=== PATIENT | female | born 1965 | race Caucasian/White ===

== ENCOUNTER 2024-11-14 10:30 | Outpatient (CLI) | payer BC, SELFPAY ==
--- NOTE | 2024-11-14 09:00 | DI.RAD_ITS ---
Exam(s) XR STANDING ALIGNMENT EXAM: XR STANDING ALIGNMENT CLINICAL HISTORY: OA L KNEE. TECHNIQUE: 2D digital imaging was performed. Four images were obtained. COMPARISON: CR XR KNEE 3V LT from 03/24/2024 CR XR KNEE 3V RT from 07/02/2024 FINDINGS: BONES: There are mild degenerative changes seen in the hips bilaterally. There is mild narrowing of the left hip joint space. Osteophytes are seen on the right femoral head. In the right knee, there is mild narrowing of the medial joint space. Osteophytes are seen both medially and laterally. In t he left knee, there is mild joint space narrowing medial. There osteophytes seen at the lateral aspe ct of the proximal tibia. There is an intramedullary cluster of calcifications in the distal right f emur which appears stable. This likely reflects a benign lesion such as a bone infarct or enchondrom a. The ankles are well maintained.There is no significant leg length discrepancy. SOFT TISSUE: Normal. IMPRESSION: Mild degenerative changes of the knees bilaterally. DATA REPOSITORY: RADIATION DOSE DELIVERED:
== END 2024-11-14 10:31 | disposition home or self-care (01) ==
LOC: DIORS 10:31
PROVIDERS: PCP Nurse Practitioner Family; Visit Provider Physician Assistant
DX: M17.12 Unilateral primary osteoarthritis, left knee (principal); M17.11 Unilateral primary osteoarthritis, right knee
CPT/HCPCS: 77073

== ENCOUNTER 2024-11-14 16:50 | Outpatient (REF) | payer BC, SELFPAY ==
[2024-11-14 10:39] LABS: HCT 42.9 % (36.0-46.0); HGB 13.6 g/dL (11.2-15.7); MCH 29.1 pg (27.0-33.0); MCHC 31.7 % (32.0-36.0); MCV 92 fL (80-95); MPV 11.7 fL (8.0-11.0); Platelet Count 212 10^3/uL (130-400); RBC 4.67 10^6/uL (3.93-5.22); RDW 12.5 % (11.7-14.6); RDW-SD 42.3 fL; WBC 5.69 10^3/uL (4.4-10.8)
[2024-11-14 10:43] LABS: Anion Gap 4.8 mmol/L (3-11); BUN 16 mg/dL (7-18); CO2 32.2 mmol/L (21.0-32.0); CREATININE 0.7 mg/dL (0.55-1.02); Calcium 9.6 mg/dL (8.5-10.1); Chloride 108 mmol/L (98-107); Estimated GFR 98.95 (mL/min/1.73m2); Glucose 101 mg/dL (74-106); Potassium 4.5 mmol/L (3.5-5.1); Sodium 145 mmol/L (136-145)
== END 2024-11-14 16:51 | disposition home or self-care (01) ==
LOC: LBN 16:50
PROVIDERS: PCP Nurse Practitioner Family; Visit Provider Student in an Organized Health Care Education/Training Program
DX: M17.11 Unilateral primary osteoarthritis, right knee (principal); Z01.818 Encounter for other preprocedural examination
CPT/HCPCS: 80048; 85027

== ENCOUNTER 2024-11-30 06:58 | Day surgery (SDC) | payer BC, SELFPAY ==
[2024-11-30] VITALS (20 sets, daily range): BP systolic 95–153; BP diastolic 38–82; PULSE 47–67; RESP 10–24; TEMP 35.8–36.8; O2SAT 95–100; BMI 32.6
--- NOTE | 2024-11-30 07:22 | W.PM.DSUDISC ---
Date of service: 11/30/24 Discharge Plan Disposition Patient Disposition: Home Condition: Good Discharge Details Reason For Visit: L TKR Attending Provider: Vinicius Ortiz Primary Care Provider: Federico Tovar Home Meds and New Rx's Prescriptions: New acetaminophen 500 mg tablet 1,000 mg PO TID Qty: 90 3RF aspirin 81 mg tablet,delayed release (DR/EC) 81 mg PO BID Qty: 60 0RF celecoxib 200 mg capsule 200 mg PO BID Qty: 60 0RF dexamethasone 4 mg tablet 4 mg PO DAILY Qty: 2 0RF docusate sodium 100 mg capsule 100 mg PO BID PRNQty: 28 0RF pantoprazole 40 mg tablet,delayed release (DR/EC) 40 mg PO DAILY Qty: 14 0RF gabapentin 300 mg capsule 300 mg PO QHS Qty: 14 0RF oxycodone 5 mg tablet 5 mg PO Q4H PRNQty: 18 0RF Continued cholecalciferol (vitamin D3) 50 mcg (2,000 unit) capsule 50 mcg PO DAILY levothyroxine 100 mcg tablet 100 mcg PO DAILY multivitamin Tablet 1 tab PO DAILY omega 9-gxl-bdj-fish oil 360-1,200 mg capsule,delayed release(DR/EC) 1 cap PO DAILY Discharge Instructions Additional Instructions: Total Knee Discharge Instructions Activity: The most important activity is to walk and to work on gentle motion (both flexion and extension). You should try to take short walks a few times a day. It is important that when resting you work on keeping the knee straight. Avoid putting a pillow behind the knee as this will encourage flexion. Work on range of motion exercises as provided by Physical Therapy. - Start outpatient physical therapy within 2 weeks. - You should wear the MAICOL hose on both legs for 2 weeks. You may remove these at night. You may also use any compression sock in place of the MAICOL hose. - Utilize [employer] to review exercises, see videos on exercises and obtain basic information pertaining to your surgery and your recovery. Dressing: Remove the Neel wrap by 2 days after your surgery and put on the MAICOL stocking given to you from the hospital. Keep the surgical dressing (underneath the NEEL wrap) in place for at least one week. After the first week it may be removed and replaced with light gauze and tape or nothing. The wound and dressing may get wet after 3 days but avoid soaking the dressing or otherwise it will need to be changed. Many people prefer covering the dressing with cling wrap (saran wrap) to minimize it from getting soaked. If it gets wet, just pat dry. If it starts to peel off then it will need to be changed. Medications: - You should take Tylenol and anti-inflammatory Celebrex as your primary pain control medications. If the Celebrex is too expensive or not covered, please call the office for another alternative (Advil/Ibuprofen or Naproxen/Aleve) - You have been prescribed a stronger pain medication Oxycodone for breakthrough pain, take as needed as prescribed. - You have also been prescribed a stomach acid reduction agent Pantoprozole to help reduce stomach acid and reflux. - You have been prescribed Gabapentin to take at night for restlessness and nerve pain. - You will be taking Aspirin 81mg twice a day for DVT prevention unless instructed otherwise. - You have also been prescribed Decadron to take to control post-operative nausea and pain. You will start this tomorrow. - If you have constipation you should take Colace or Miralax (both [id number]). It takes most people 3-4 days to have a bowel movement. Follow-up: 2 weeks If you have any acute concerns or questions, please do not hesitate to contact the office at [phone]. You may contact Dr. Ortiz with any questions after hours through the hospital at [phone] or on his cell phone at [phone]. Referrals: Vinicius Ortiz MD [ [facility] STAFF PHYSICIAN] - Equipment/Supplies: Walker Activity:: Activity as Tolerated Shower/Bathe:: 72 hours Diet:: As Tolerated Discharge Orders Discharge Orders: Discharge Order (Routine); Ordered 11/30/24 Ordered By: Mamadou Cuba DS: Diagnosis Discharge Diagnosis (1) Arthritis of left knee: Status: Acute
[2024-11-30] MEDS: Celecoxib 200 MG CAP 400 MG PO (07:53)
[2024-11-30] MEDS: Acetaminophen 500 MG TAB 1000 MG PO (07:54)
[2024-11-30] MEDS: Gabapentin 300 MG CAP PO (07:55)
[2024-11-30] MEDS: Lactated Ringers 1,000 ML 80 ML IV ×2 (07:56→10:35)
--- NOTE | 2024-11-30 07:59 | W.ANESPRE ---
General Info Date of Service Date Performed: 11/30/24 Height: 5 ft 4.5 in Weight: 87.6 kg Body Mass Index (BMI): 32.6 Surgical Procedure: Operation Date: 11/30/24 09:25 Proposed Procedure Side Surgeon p Knee Total Arthroplasty, Cementless CR Left Vinicius Ortiz MD Meds Allergies and Home Medications Allergies Allergy/AdvReac Type Severity Reaction Status Date / Time lidocaine Allergy Severe Anaphylaxis Verified 11/30/24 07:45 bee pollen Allergy Unknown Unknown Verified 11/30/24 07:45 insect venom Allergy Unknown Unknown Verified 11/30/24 07:45 mold Allergy Unknown Unknown Verified 11/30/24 07:45 Home Medication ?Medication ?Instructions ?Recorded cholecalciferol (vitamin D3) 50 50 mcg PO DAILY 05/24/24 mcg (2,000 unit) capsule levothyroxine 100 mcg tablet 100 mcg PO DAILY 05/24/24 multivitamin 1 tab PO DAILY 05/24/24 omega-3 360 ti-jud-rhl-fish oil 1 cap PO DAILY 05/24/24 1,200 mg capsule,delayed release acetaminophen 500 mg tablet 1,000 mg (2 x 500 mg) PO TID #90 11/30/24 tabs aspirin 81 mg tablet,delayed 81 mg PO BID #60 tabs 11/30/24 release celecoxib 200 mg capsule 200 mg PO BID #60 caps 11/30/24 dexamethasone 4 mg tablet 4 mg PO DAILY #2 tabs 11/30/24 docusate sodium 100 mg capsule 100 mg PO BID PRN #28 caps 11/30/24 gabapentin 300 mg capsule 300 mg PO QHS #14 caps 11/30/24 oxycodone 5 mg tablet 5 mg PO Q4H PRN #18 tabs 11/30/24 pantoprazole 40 mg tablet,delayed 40 mg PO DAILY #14 tabs 11/30/24 release Current Visit Medications: Current Medications Generic Name Dose Route Start Last Admin Trade Name Freq PRN Reason Stop Dose Admin Acetaminophen 1,000 mg 11/30/24 06:00 11/30/24 07:54 Acetaminophen 500 Mg Tab PO 11/30/24 23:59 1,000 mg PREOP ARELI Administration Acetaminophen 1,000 mg 11/30/24 07:20 Acetaminophen 500 Mg Tab PO 12/30/24 07:19 TID PRN PRN Analgesia Celecoxib 400 mg 11/30/24 06:00 11/30/24 07:53 Celecoxib 200 Mg Cap PO 11/30/24 23:59 400 mg PREOP ARELI Administration Docusate Sodium 100 mg 11/30/24 07:20 Docusate Sodium 100 Mg Cap PO 12/30/24 07:19 BID PRN PRN Constipation Gabapentin 300 mg 11/30/24 06:00 11/30/24 07:55 Gabapentin 300 Mg Cap PO 11/30/24 23:59 300 mg PREOP ARELI Administration Ringer's Solution 1,000 mls @ 80 mls/hr 11/30/24 06:00 11/30/24 07:56 IV 11/30/24 23:59 80 mls/hr INFUSION ARELI Administration Cefazolin Sodium/Dextrose 2 gm in 50 mls @ 100 mls/hr 11/30/24 06:00 Ancef Duplex IVPB 11/30/24 23:59 PREOP ARELI Tranexamic Acid/Sodium Chloride 1,000 mg in 100 mls @ 600 mls/hr 11/30/24 06:00 IVPB 11/30/24 23:59 PREOP ARELI IV Miscellaneous Supplies 1 each 11/30/24 06:00 Iv Access IV 11/30/24 23:59 DIRECTED ARELI Ondansetron HCl 4 mg 11/30/24 07:20 Ondansetron 4 Mg/2 Ml Vial IVP 12/30/24 07:19 Q6H PRN PRN Nausea Oxycodone HCl 0 mg 11/30/24 07:20 Oxycodone 5 Mg Tab PO 12/30/24 07:19 Q3H PRN PRN Pain Polyethylene Glycol 17 gm 11/30/24 07:20 Polyethylene Glycol 3350 17 Gm Packet PO 12/30/24 07:19 BID PRN PRN Constipation Sodium Chloride 0 ml 11/30/24 06:00 Normal Saline Flush 10 Ml Syr IV 11/30/24 23:59 PRN PRN Sodium Chloride 0 ml 11/30/24 06:00 Normal Saline 10 Ml Vial IJ 11/30/24 23:59 DIRECTED PRN Sterile Water 0 ml 11/30/24 06:00 Water,Injection,Sterile 10 Ml Vial IJ 11/30/24 23:59 DIRECTED PRN Tranexamic Acid 1,300 mg 11/30/24 07:20 Tranexamic Acid 650 Mg Tab PO 11/30/24 23:59 ONCE PRN PFSH Active Problems Active Problems: Problem Status Onset Code Arthritis of left knee Acute M17.12 Arthritis of right knee Acute M17.11 Tinea corporis Acute B35.4 Obesity Chronic E66.9 Menopause Acute Z78.0 Hypothyroidism Chronic E03.9 Hyperlipidemia Acute E78.5 Hypertension Chronic I10 Anxiety Chronic F41.9 Medical History Medical History History of concussion Tobacco Smoking/Tobacco Use Status: Never Passive smoking exposure: No Alcohol Alcohol Intake: never Substance Use Substance use: Never Substance use type: does not use Vital Signs and Lab Results Vital Signs Most Recent Vital Signs in EMR: Most Recent Vital Signs Temp Pulse Resp BP Pulse Ox 36.5 C 55 L 17 142/82 H 98 11/30/24 07:15 11/30/24 07:15 11/30/24 07:15 11/30/24 07:15 11/30/24 07:15 Lab Results Blood Type / Crossmatch: No Data to Display Complete Blood Count: White Blood Count 5.69 10^3/uL (4.4-10.8) 11/14/24 09:55 Red Blood Count 4.67 10^6/uL (3.93-5.22) 11/14/24 09:55 Hemoglobin 13.6 g/dL (11.2-15.7) 11/14/24 09:55 Hematocrit 42.9 % (36.0-46.0) 11/14/24 09:55 Platelet Count 212 10^3/uL (130-400) 11/14/24 09:55 Complete Metabolic Panel: Sodium 145 mmol/L (136-145) 11/14/24 09:55 Potassium 4.5 mmol/L (3.5-5.1) 11/14/24 09:55 Chloride 108 mmol/L (98-107) H 11/14/24 09:55 Carbon Dioxide 32.2 mmol/L (21.0-32.0) H 11/14/24 09:55 BUN 16 mg/dL (7-18) 11/14/24 09:55 Creatinine 0.7 mg/dL (0.55-1.02) 11/14/24 09:55 Est GFR (CKD-EPI 2020) 98.95 (mL/min/1.73m2) 11/14/24 09:55 Calcium 9.6 mg/dL (8.5-10.1) 11/14/24 09:55 Glucose 101 mg/dL (74-106) 11/14/24 09:55 Liver Function Panel: No Data to Display Coagulation Panel: No Data to Display Cardiac Panel: No Data to Display Arterial Blood Gas: No Data to Display Venous Blood Gas: No Data to Display Pancreas Panel: No Data to Display Thyroid Panel: No Data to Display Infectious Disease: No Data to Display Blood Cultures: No Data to Display Toxicology Panel: No Data to Display Anesthesia Assessment and Plan Anesthesia History Personal History: No History of Anesthesia Complications and Other Family History: No Family History of Anesthesia Complications Exercise Tolerance Exercise Tolerance: Metabolic Equivalents>4 Pertinent Negatives Pertinent Negatives: No Symptoms of GERD, No Major Cardiovascular Symptoms or Complaints, No Major Pulmonary Symptoms or Complaints and No History of CVA/TIA Cardiac & Pulmonary Exam Cardiac Exam: Normal S1/S2 Heart Sounds Pulmonary Exam: Clear Bilateral Breath Sounds Implantable Cardiac Device Does patient have a Pacemaker or an ICD?: No Airway Exam Known Difficult Airway: No Mallampati Class: 3 Mouth Opening: Narrow (< 3cm) Thyromental Distance: Greater than 3 cm Neck Range of Motion: Full ROM Neck Circumference: Normal Teeth Condition: Normal Dentition ASA Classification ASA Score: ASA 2 Emergency Case?: No NPO Status NPO Status: NPO Clears >2 hours, Solids >8 hours Anesthesia Plan Resuscitation Status: Full Code Anesthesia Technique: Spinal Anesthesia Airway Planned: Natural Airway Pain Management: Surgeon and patient request nerve block Monitors Used: Standard Monitors and SedLine
--- NOTE | 2024-11-30 08:41 | W.ANESNERVE ---
Nerve Block Single Injection Procedure Date and Time Date Performed: 11/30/24 Procedure Start: 08:32 Location Where Procedure Performed Procedure Location: Day Surgery Unit Reason Performed: Postoperative Analgesia Requesting Provider: Vinicius Ortiz Timeout Performed Timeout Performed: Yes Monitoring Used ECG, Blood Pressure, SpO2 and See EMR for corresponding vital signs Sterility Sterility: Hand Hygiene, Surgical Mask, Sterile Gloves, Eye Protection and Chlorhexidine Sedation Given During Procedure Sedation Given (Indicate Dose Given): Versed IV Dose:: 2 mg Patient Mental Status Patient Mental Status: Sedate with meaningful communication Nerve Block 1st Nerve Block: Laterality: Left Block Type: Adductor Canal Ultrasound Image Saved?: Yes Needle / Catheter Used: 100mm SonoPlex II Local Anesthetic Bolus (Indicate Dose Given): Bupivacaine 0.25% Dose:: 10 cc, Exparel Dose:: 10 cc and Chloroprocaine 3% (used for local skin infiltration) Dose:: 3 cc Additives (Indicate Dose Given): None Ultrasound: Sterile probe cover and gel used Nerve Stimulator: Supplement to Ultrasound use and No twitch or parasthesia noted < 0.5 mA Paresthesia: None Procedure Tolerated: No Complications and Patient tolerated well Procedure Outcome: Successful Performed By: Darío Mittal Supervised By: Lyssa Bryant
[2024-11-30] MEDS: ceFAZolin 2 GM/50 ML BAG IVPB (08:58)
[2024-11-30] MEDS: TRANEXAMIC ACID/SOD. CHL. 1,000 MG/100 ML BAG 600 MG IVPB (09:09)
--- NOTE | 2024-11-30 09:09 | ROE_ITS ---
Operative Note Operative Note PRE-OP DIAGNOSIS: Left Knee Osteoarthritis POST-OP DIAGNOSIS: same PROCEDURE: Left Total Knee Replacement SURGEON: Vinicius Ortiz BACTERIOLOGY RESEARCH ASSISTANT: Juliana Cuba ANESTHESIA TYPE: Spinal Refer to Anesthesia Record ESTIMATED BLOOD LOSS: 50 PATHOLOGY: none sent TOURNIQUET TIME: 0 COMPLICATIONS: None Patient was transported to: PACU Patient's condition: stable Implants: 1. Depuy Attune Cementless Cruciate Retaining Femoral Component, Size 5 2. Depuy Attune Cementless Fixed Bearing Tibial Component, Size 5 3. Depuy Attune 5x6mm CR/FB Poly 4. Depuy Attune Patellar Component, Size 35 Indications: I have seen Gissel in clinic for symptoms of knee arthritis, confirmed with radiographic findings. She has exhausted nonoperative methods and was having significant limitations in daily function and desired better function and less pain. I discussed the technical details of a knee replacement. I explained the risks of the procedure to include, but not limited to, bleeding, infection, pain, stiffness, fracture, damage to nerves and vessels, damage to muscles and tendons, loosening, need for repeat procedure, blood clot and cardiopulmonary demise. Despite these risks, Gissel elected to proceed. Findings: There was significant signs of arthritis throughout the knee involving all three compartments. Procedure Description: Gissel was greeted in the preoperative holding area where the correct side was identified and marked. The consent was reviewed with the patient and signed. The history and physical was updated. All questions were answered. Preoperative medications were administered: Acetaminophen 1000mg, Celebrex 400mg, and Gabapentin 300mg. An adductor canal block was then administered by the anesthesia team in the DSU. She was taken back to the operating room. A spinal anesthestic was then administered. The patient was placed into the supine position on the operating room table. Posts were placed for positioning during the procedure. All bony prominences were well padded. Prophylactic antibiotics in the form of Cefazolin were administered. 1g of Tranxemic Acid was given intravenously within 30 minutes of incision. The left leg was then prepped with Chloraprep and draped in a standard fashion with impervious stockinette. A second prep with Chloraprep was performed prior to application of Iodine impregnated skin protection. A timeout to confirm correct identity, side and site, procedure, allergies, anesthesia, and medical concerns was performed. With the knee in some flexion, a midline incision was made overlying the knee. Full thickness skin flaps were raised once the extensor mechanism was encountered. These were raised medially and laterally. Any bleeding was controlled with electrocautery. Once the extensor mechanism was fully exposed, a medial parapatellar arthrotomy was performed in a flexed position. All bleeding from the arthrotomy and the geniculate arteries was coagulated. A medial subperiosteal peel was performed with electrocautery to the midcoronal plane. The fat pad was removed while keeping the patellar tendon protected. The anterior distal femur synovium was removed for later visualization. The ACL and PCL were resected and the anterior horn of the lateral meniscus was transected. The knee was then flexed with the patella everted. Large osteophytes from the tibia were removed. Large osteophytes from the femur were removed. Using a step drill, and based on preoperative templating, the femoral canal was entered. This was done with a step drill without any difficulty. The intramedullary distal femoral cut guide was inserted, set to a 6 degree valgus cut and 9mm cut thickness. The distal femoral cut guide was then held in position and pinned. With the soft tissues protected, the distal cut was performed. This was passed over a few times to ensure a planar cut. I then turned attention to the tibia. The extramedullary guide was placed onto the leg. The distal aspect was slid medial to adjust for position of center of ankle and stay in line with shaft of the tibia. Approximately 3-5 degrees of posterior slope was kept in the proximal cutting guide. The center of the guide was aligned with the PCL. The stylus was used to assess cut thickness. The medial side, most involved side, was set for a 6mm cut that corresponded to 8mm laterally. This was then held in position and pinned into place with 2 additional pins and a cross pin for stability. The medial and lateral collateral ligaments were protected and the cut was performed. With this completed, it was assessed and noted to be of appropriate dimensions. The guide was removed. A spacer block was inserted and the knee was brought into extension. The 6mm spacer block provided full extension, without hyperextension and with stability of both the medial and lateral collateral ligaments was assessed. The pins from the femur and the tibia were then removed. The distal femur was then sized. The anterior stylus was placed onto the lateral ridge of the anterior femur. This indicated a size 5 femur. The external rotation of the guide was adjusted to 0 degrees to match the epicondylar axis, perpendicular to Uma?s line. The 4-in-1 cutting guide was the placed. The posterior medial femur cut was evaluated and appeared of good thickness. The spacer block was inserted underneath the cutting guide and stability was confirmed in 90 degrees of flexion. An camila wing was used to confirm appropriate position of the anterior cut to avoid notching. This cutting guide was ensured to be flush on the cut surface and then pinned into place with headed pins. While protecting the soft tissues, quad tendon, and collateral ligaments, the anterior and posterior cuts were performed with a saw. The central two pins were removed and the posterior and anterior chamfers were cut next. The notch-cutting guide was placed. This was pinned to lateralize the femoral component as much as possible while keeping it flush on the cut surface. This was then pinned into position. A reciprocating saw was used to make the notch cut. A rasp smoothed the cut surfaces. The medial and lateral menisci were removed. A trial femoral component was then inserted, impacted down to the cut surfaces, and the lug holes were drilled. A provisional trial tibial component was placed and the knee was brought through range of motion. There was noted to be excellent extension and flexion. There was no significant instability. The patella was tracking without thumbs. A size 6mm polyethylene component provided the best range of motion and stability with less than 2mm gapping with medial and lateral stress and full extension without significant hyperextension. The tibial cut surface was fully exposed. The tibia was then sized as a 5. The tibia had been previously marked during trialing to correspond to the center of the tibial component to help with rotation. The trial was aligned to this juliana, approximately rotated to the medial 1/3rd of the tibial tubercle. The trial was pinned into place. The tibia was prepared with a reamer and a keel punch and lug holes. The knee was then brought into extension and the patella was measured as 22mm. Using the patellar clamp and cut guide, this was resected to a flat surface with at least 13mm of thickness remaining. The size 35 patella fit the best. This was oriented and then clamped into position. The lugs were drilled. The trial components were removed. The final components were opened on the back table. The periosteal and capsular tissues, especially posteriorly, around the knee were then systematically injected with a periarticular cocktail consisting of 246mg of Ropivacaine, 0.5mg of Epinephrine, 0.08mg of Clonidine, and 30mg of Ketorolac, diluted to 100cc. On the back table, with the implants opened. The cement was mixed. One batch of high viscosity cement was prepared with vacuum assistance. After the cement was ready a small amount was placed on the cut surface of the patella and the patellar button was clamped into position and held. The cementless knee components were placed. Starting with the tibial component, the tibia was subluxed anteriorly and the lug holes of the component were lined up. The tibia was then impacted with an impactor and mallet until the tibial component was in contact with the tibia. The final polyethylene component was inserted. Then, the femoral component was inserted. The lug holes were aligned and the component was impacted into position. The knee was irrigated with Surgiphor Betadine solution. This was allowed to sit in the knee for 3 minutes and then it was irrigated out with saline. After the cement had finally cured, approximately 15min, the clamp was removed from the patella and the knee was taken through range of motion. The patella was tracking with a no-thumbs technique. The capsule was then reapproximated with a No. 1 Vicryl at multiple locations. The capsule was finally closed with a No. 2 Stratafix, barbed suture. Deep tissues were then reapproximated with 0 Vicryl and 2-0 Vicryl. The skin was closed with a running 3-0 Monocryl in a subcuticular fashion. This was reinforced with skin glue. A Mepilex silver dressing was applied along with a jtmu-zl-[id number] GIRISH wrap. A CryoCuff was applied. Gissel was transferred to the hospital bed without difficulty an suffering no apparent complication. She has a good prognosis. Physical therapy will start today and without restrictions, weight-bearing as tolerated. Aspirin 81mg BID will be used for DVT prophylaxis. Date of Procedure: 11/30/24
--- NOTE | 2024-11-30 12:53 | W.ANESPOSTOP ---
Postoperative Evaluation Date, Time and Location Date Performed: 11/30/24 Time Performed: 12:46 Patient Location: Day Surgery Unit Vital Signs Most Recent Imported Vital Signs: Most Recent Vital Signs Temp Pulse Resp BP Pulse Ox 35.8 C L 55 L 17 153/65 H 96 11/30/24 12:00 11/30/24 12:00 11/30/24 12:00 11/30/24 12:00 11/30/24 12:00 Pain Score Most Recent Pain Score: Most Recent Pain Score Pain Level 2 11/30/24 12:00 Assessment Mental Status: Awake (Alert & Oriented to Patient Baseline) Airway and Respiratory Function: Patent airway with normal (patient baseline) respiratory exam Cardiovascular Function: Hemodynamically Stable Hydration Status: Adequately Hydrated Nausea & Vomiting: No Nausea or Vomiting Pain: Pain is tolerable per patient Peripheral Nerve Block: Regional nerve block not resolved at time of post operative discharge
--- NOTE | 2024-11-30 14:22 | IN_ITS ---
PT Notes Visit Reasons: L TKR Physical Therapy Day Surgery Initial Evaluation Date: 11/30/2024 Referring Doctor: SANDI Arauz/Dr. Ortiz PT Orders: PT CONSULT: Status post Ortho surgery Precautions: WBAT left LE Patient Profile/Admitting Diagnosis: Patient is 59-year-old female presenting status post elective left TKA by Dr. Ortiz on 11/30/2024. Postop uncomplicated PMHX: Arthritis bilateral knee, obesity, menopause, hypothyroidism, hyperlipidemia, hypertension, anxiety Social History/Home Situation: Patient resides in two-story home with with 13 steps without rail. Patient independent ADLs, ambulation, driving, meal prep, shopping, home management. Equipment Owned/DME: Cane Subjective: Patient reports she is feeling well and agreeable to participate in the eval Objective: [] General Observation: Female presented upright with Cryo/Cuff to left knee has been present. Mental Status: Alert and oriented x 4, able to follow instructions, agreeable to participate in eval Pain: 2/10 left knee ROM: [] BUE: Within normal limits Right Lower Extremity: Within normal limits Left Lower Extremity: Hip and ankle within normal limits, knee 0-95 degrees Strength: [] BUE: Grossly 5/5 Right Lower Extremity: Grossly 5/5 Left Lower Extremity: Hip flexion: 3 -/5; hip abduction: 3 -/5; hip extension: 3 -/5; knee extension: 3/5; knee flexion: 3 -/5 ankle DF: 3/5 ; ankle PF: 3/5; patient with strong quad set and able to perform straight leg raise without lag through shortened range Sensation: Intact Bed Mobility/Transfers: [] Supine to sit supervision Sit to stand supervision Stand to sit supervision Bed to chair supervision with FWW Gait: Ambulate with FWW supervision 150 feet initially step to pattern progressed to reciprocal with intermittent cues initially for quad activation at mid stance on left stairs: 5 steps x 2 with 1 rail and single-point cane contact-guard assist step to pattern cues for sequencing Balance: [] Static Sitting: Normal Dynamic Sitting: Good Static Standing: Good Dynamic Standing: Fair plus Special Tests: [] Mobility Limitations Standardized Measure [] [facility] AM-PAC 6 clicks Basic Mobility Inpatient Short Form: [] Raw Score: 22 CMS Score: 20.91% Informed Consent/Education: Patient instructed in purpose of PT consult. Treatment: 41331 packet containing TKA exercise protocol has been given to patient. Education and training on initial set of exercises that can be done at home have been completed with patient. Assessment: Patient is a 59-year-old female who presents with clinical signs and symptoms consistent with current/admitting diagnoses that have resulted to mobility limitations, gait instability, generalized weakness, and impairment of motor control as demonstrated by the following impairment level findings: 1. Decreased strength to left knee major muscle groups 2. Impaired standing balance 3. Limitation of joint range of motion in left knee 4. Impaired functional activity tolerance Impairments are contributing to the following functional limitations: 1. Inability to safely ambulate without assistive device 2. Increase completion time for mobility ADL performance 3. Increased fall risk 4. Difficulty performing stairs Patient is assessed as a low complexity based on the following: History: 59-year-old female with impairment level findings, functional limitations, and past medical history as indicated above Examination: Demonstrable impairment in strength, balance, and mobility level with underlying impairments and functional limitations as documented above Presentation: Stable Decision Making: Low Goals: N/A. PT evaluation and 1-2 treatment sessions only for functional mobility training using recommended AD and for HEP instruction. Plan of Care/Treatment Plan: N/A. PT evaluation and 1-2 treatment session only for functional mobility training using recommended AD and for HEP instruction. DISCHARGE RECOMMENDATIONS: [Home with home exercise program and outpatient PT as scheduled TREATMENT CODE/TIME: [id number], [id number], [id number] Thank you for the opportunity to participate in the care of this patient. [facility]
== END 2024-11-30 13:55 | disposition home or self-care (01) ==
PROVIDERS: PCP Nurse Practitioner Family; Visit Provider Student in an Organized Health Care Education/Training Program
PROC: (CPT 27447; principal; 2024-11-30 09:15)
DX: M17.12 Unilateral primary osteoarthritis, left knee (principal); G89.18 Other acute postprocedural pain
CPT/HCPCS: 27447; 64447; 97110; 97116; 97161; C1776; J0665; J0666; J0690; J1100; J2003; J2004; J2250; J2371; J2401; J2405; J2704

== ENCOUNTER 2024-12-15 09:41 | Outpatient (CLI) | payer BC, SELFPAY ==
--- NOTE | 2024-12-15 09:30 | DI.RAD_ITS ---
Exam(s) XR STANDING ALIGNMENT EXAM: XR STANDING ALIGNMENT CLINICAL HISTORY: 1ST POST OP L TKA. TECHNIQUE: 2D digital imaging was performed. COMPARISON: CR XR KNEE 3V RT from 07/02/2024 FINDINGS: 3 views There has been interval placement of a left knee prosthesis which appears satisfactory. There are moderate degenerative changes in the medial compartment of the opposite-right knee. Incide ntally noted is a nonexpansile sclerotic bone density in the distal diaphysis of the right femur, sim ilar to previous. This is probably a benign bone lesion such as an enchondroma. There are moderate degenerative changes in the right hip noted. Left hip appears unremarkable. Ankl es appear unremarkable. IMPRESSION: Findings as above. DATA REPOSITORY: RADIATION DOSE DELIVERED:
--- NOTE | 2024-12-15 09:30 | DI.RAD_ITS ---
Exam(s) XR KNEE LT 1V EXAM: XR KNEE LT 1V CLINICAL HISTORY: 1ST POST OP S/P L TKA. TECHNIQUE: 2D digital imaging was performed. COMPARISON: No exams were available for comparison FINDINGS: Single lateral view of the left knee Satisfactory position alignment of the components of the recently placed prosthesis. No fracture or loosening evident. IMPRESSION: Satisfactory appearance of the prosthesis on this lateral view. DATA REPOSITORY: RADIATION DOSE DELIVERED:
== END 2024-12-15 09:42 | disposition home or self-care (01) ==
LOC: DIORS 09:42
PROVIDERS: PCP Nurse Practitioner Family; Referring Provider Nurse Practitioner Family; Visit Provider Physician Assistant
DX: Z96.652 Presence of left artificial knee joint (principal)
CPT/HCPCS: 73560; 77073